=== PATIENT | male | born 1960 | race Caucasian/White ===

== ENCOUNTER 2016-10-25 03:24 | Emergency (ER) | payer MEDICAID ==
[~2016-10-25 03:24] MED LIST: BLOOD PRESSURE MED; FLOMAX0.4 M1 DOB; FLOMAX0.4 MG PO; HELIDAC KIT; LORTAB 5-325 M1 EACH PO; MEDROL4 MG/DOSE- PO; MOTRIN600 MG PO; NO MEDICATIONS; PREDNISONE PO; PRILOSEC40 MG PO; ZOFRAN ODT4 MG PO; ZOLOFT50 MG PO
== END 2016-10-25 03:33 | disposition home or self-care (01) ==
LOC: SED 03:24
DX: J02.9 Acute pharyngitis, unspecified (principal); K21.9 Gastro-esophageal reflux disease without esophagitis; I10 Essential (primary) hypertension; F17.200 Nicotine dependence, unspecified, uncomplicated
CPT/HCPCS: 87651; 99283